=== PATIENT | male | born 1945 | race Asian ===

== ENCOUNTER 2016-05-28 05:51 | Emergency (ER) | payer OTHER ==
[2016-05-28] MEDS ORDERED: predniSONE 20 MG TABLET (UD) PO ONE (06:30)
[2016-05-28] MEDS ORDERED: KETOROLAC TROMETHAMINE 60 MG/2 ML VIAL IM ONE (06:30)
--- NOTE | 2016-05-28 06:30 | PDOC ---
[id number]/20/17 06:12 - History of Present Illness Initial Comments: 05/28/16 06:29 CHIEF COMPLAINT: lower back pin HISTORY OF PRESENT ILLNESS: 70 yo M with hx of IDDM, HTN, right shoulder impingment syndrome, presents to ED with left lower back pain x 2 days. Patient states pain began yesterday and radiates down his left leg. He denies any loss of sensation, numbness, or tingling to his legs. Patient denies any loss of bowel or bladder function. Patient denies any chest pain, shortness of breath. PAST MEDICAL HISTORY: as per HPI FAMILY HISTORY: Denies SOCIAL HISTORY: Denies tobacco, alcohol, illicit drug use. SURGICAL HISTORY: Denies ALLERGIES: No known drug allergies REVIEW OF SYSTEMS General/Constitutional: Denies fever or chills. Denies weakness, weight change. HEENT: Denies change in vision. Denies ear pain or discharge. Denies sore throat. Cardiovascular: Denies chest pain or shortness of breath. Respiratory: Denies cough, wheezing, or hemoptysis. Gastrointestinal: Denies nausea, vomiting, diarrhea or constipation. Denies rectal bleeding. Genitourinary: Denies dysuria, frequency, or change in urination. Musculoskeletal: Left lower back pain, radiating to left leg. Denies joint or muscle swelling or pain. Denies neck or back pain. Skin: Denies rash or easy bruising. PHYSICAL EXAM General Appearance: Well-appearing, appropriately dressed. No apparent distress. HEENT: EOMI, PERRLA, normal ENT inspection, normal voice, TMs normal, pharynx normal. No conjunctival pallor. No photophobia, scleral icterus. Respiratory/Chest: Lungs CTAB. Cardiovascular: RRR. S1, S2. Vascular Pulses: Dorsalis-Pedis (R): 2+, Dorsalis-Pedis (L): 2+ Gastrointestinal/Abdominal: Normal bowel sounds. Abdomen soft, non-distended. No tenderness or rebound tenderness. No organomegaly, pulsatile mass, guarding , hernia, hepatomegaly, splenomegaly. Musculoskeletal/Extremities: Reproducible tenderness to left lower back. Normal inspection. FROM of all extremities, normal capillary refill. Pelvis Stable. No CVA tenderness. No tenderness to extremities, pedal edema, swelling , erythema or deformity. Integumentary: Appropriate color, dry, warm. No cyanosis, erythema, jaundice or rash Neurologic: golf club manager II-XII intact. Fully oriented, alert. Appropriate mood/affect. Motor strength 5/5. No appreciable EOM palsy, facial droop or sensory deficit. 05/28/16 06:31 Past History - Past Medical History Allergies/Adverse Reactions: Allergies Allergy/AdvReac Type Severity Reaction Status Date / Time No Known Drug Allergies Allergy Unknown Verified 08/03/12 12:10 Home Medications: Ambulatory Orders Allopurinol 100 mg PO DAILY 03/30/11 Aspirin Coated [Ecotrin -] 81 mg PO DAILY 03/30/11 Glyburide/Metformin HCl [Glucovance 5-500 mg Tablet] 1 each PO BID 03/30/11 Sitagliptin Phos/Metformin HCl [Janumet 50-500 mg Tablet] 1 each PO BID Insulin Glargine,Hum.rec.anlog [Lantus Solostar PEN -] 30 units SQ HS 06/06/12 Levothyroxine [Synthroid -] 75 mcg PO DAILY@0700 #0 tablet 06/20/12 Simvastatin [Zocor -] 20 mg PO HS #1 tablet 06/20/12 Metoprolol Succinate [Toprol XL -] 50 mg PO DAILY 08/02/12 Multivitamin [Multivitamins] 1 each PO DAILY 08/02/12 Amlodipine Besylate/Benazepril [Lotrel 10-40 mg Capsule] 1 each PO DAILY Oxycodone HCl/Acetaminophen [Percocet 5-325 mg Tablet] 1 - 2 tab PO Q4H PRN #0 tablet 08/03/12 Oxycodone HCl/Acetaminophen [Percocet 5-325 mg Tablet] 1 - 2 tab PO Q6H PRN #12 tab MDD 4 05/28/16 Anemia: No Asthma: No Cancer: Yes (thyroid cancer) Cardiac Disorders: No CVA: Yes (TIA) COPD: No CHF: No Dementia: No Diabetes: Yes (NIDDM) GI Disorders: No Disorders: No HTN: Yes Hypercholesterolemia: Yes Liver Disease: No Seizures: No Thyroid Disease: Yes - Surgical History Abdominal Surgery: No Appendectomy: No Cardiac Surgery: No Cholecystectomy: No Lung Surgery: No Neurologic Surgery: No Orthopedic Surgery: No - Psycho/Social/Smoking Cessation Hx Smoking History: Former smoker Have you smoked in the past 12 months: No If you are a former smoker, when did you quit?: 2002 'Breaking Loose' booklet given: 06/16/12 Hx Alcohol Use: Yes (DAILY) Drug/Substance Use Hx: No Substance Use Type: Alcohol Hx Substance Use Treatment: No Medical Decision Making - Medical Decision Making 05/28/16 06:36 70 yo M with hx of HTN, IDDM, presents to ED with left lower back pain radiating to left leg x 2 days. -60 mg Toradol IM -40 mg prednisone -5 mg Valium Will reassess. Case discussed in detail with oncoming emergency provider including history, physical exam and ancillary studies. In brief, this patient is being seen in the ED for a chief complaint of: left lower back pain Plan for disposition as follows: discharge Oncoming ROCKY Rosario has assumed care for the patient and will complete the evaluation and treatment. *DC/Admit/Observation/Transfer Diagnosis at time of Disposition: Sciatica of left side - Discharge Dispostion Disposition: HOME Condition at time of disposition: Improved - Prescriptions Prescriptions: Oxycodone HCl/Acetaminophen [Percocet 5-325 mg Tablet] 1 - 2 tab PO Q6H PRN #12 tab MDD 4 PRN Reason: Pain - Referrals Referrals: Sarath Alas MD [Primary Care Provider] - Nacho Sun MD [Staff Physician] - - Patient Instructions Printed Discharge Instructions: DI for Sciatica Additional Instructions: Please take medication as needed for discomfort. please read instructions on sciatica. Please follow-up with referred orthopedist. - Post Discharge Activity Work/School Note: Back to Work
[2016-05-28] MEDS ORDERED: diazePAM 5 MG TABLET PO ONE (06:31)
[2016-05-28 06:40] VITALS: BP 164/67; PULSE 80; BMI 29.4
[2016-05-28] MEDS ORDERED: predniSONE 20 MG TABLET (UD) ONE ×2 (06:46→06:48)
[2016-05-28] MEDS ORDERED: KETOROLAC TROMETHAMINE 60 MG/2 ML VIAL ONE (06:46)
[2016-05-28] MEDS ORDERED: diazePAM 5 MG TABLET ONE (06:47)
--- NOTE | 2016-05-28 07:18 | PDOC ---
*Physical Exam - Vital Signs Last Vital Signs Temp Pulse Resp BP Pulse Ox 80 20 164/67 05/28/16 06:34 05/28/16 06:34 05/28/16 06:34 ED Treatment Course - Medications Given in the ED: ED Medications Discontinued Medications Generic Name Dose Route Start Last Admin Trade Name Rajendra PRN Reason Stop Dose Admin Diazepam 5 mg 05/28/16 06:31 05/28/16 06:55 Valium - PO 05/28/16 06:32 5 mg ONCE ONE Administration Ketorolac Tromethamine 60 mg 05/28/16 06:30 05/28/16 06:55 Toradol Injection - IM 05/28/16 06:31 60 mg ONCE ONE Administration Prednisone 40 mg 05/28/16 06:30 05/28/16 06:55 Deltasone - PO 05/28/16 06:31 40 mg ONCE ONE Administration Medical Decision Making - Medical Decision Making 05/28/16 07:18 Patient received in sign out with complaints of back pain and sciatica. Patient received medication and awaiting for improvement. We'll reassess shortly 05/28/16 08:18 Patient reevaluated and states mild relief with medication but soap tender over the left sciatica / left mid buttock. Patient describes the pain as sharp and intermittent worsened with standing. patient states has not had this pain before prior to 2 days ago. Patient also states has had no imaging of the affected area. Patient be ordered for hip and pelvis x-ray to rule out other etiology. 05/28/16 09:21 No evidence of hip dislocation or acute bony abnormalities. There is some disc space narrowing at L4-L5 and L5 and S1. Will discharge home with percocet and orthopedist referral. *DC/Admit/Observation/Transfer Diagnosis at time of Disposition: Sciatica of left side - Discharge Dispostion Disposition: HOME Condition at time of disposition: Improved - Referrals Referrals: Sarath Alas MD [Primary Care Provider] - Nacho Sun MD [Staff Physician] - - Patient Instructions Printed Discharge Instructions: DI for Sciatica Additional Instructions: Please take medication as needed for discomfort. please read instructions on sciatica. Please follow-up with referred orthopedist.
== END 2016-05-28 09:36 | disposition home or self-care (01) ==
LOC: JER 05:51
PROC: 3E0233Z Introduction of Anti-inflammatory into Muscle, Percutaneous Approach (ICD-10-PCS; principal; 2016-05-28)
DX: M54.32 Sciatica, left side (principal); E11.9 Type 2 diabetes mellitus without complications; I10 Essential (primary) hypertension; Z86.73 Personal history of transient ischemic attack (TIA), and cerebral infarction without residual deficits; Z85.850 Personal history of malignant neoplasm of thyroid; Z79.82 Long term (current) use of aspirin; Z87.891 Personal history of nicotine dependence
CPT/HCPCS: 73523-TC; 99281-25

== ENCOUNTER 2016-08-30 10:28 | Emergency (ER) | payer OTHER ==
[2016-08-30 10:32] VITALS: BP 159/80; PULSE 97; TEMP 98; BMI 29.4
[2016-08-30] MEDS ORDERED: IBUPROFEN 400 MG TABLET (FP) PO ONE ×2 (11:08→11:09)
--- NOTE | 2016-08-30 11:16 | PDOC ---
History of Present Illness - General Chief Complaint: Injury Stated Complaint: LFT LEG PAIN Time Seen by Provider: 08/30/16 10:39 History Source: Patient Exam Limitations: No Limitations - History of Present Illness Initial Comments: 08/30/16 11:31 Agent states stumbled while at [employer] going up the stairs falling backwards into the right landing on his elbow and twisting his left knee. 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 Is seeing Dr. Gonzalez/rubén for same and received an injection one month ago with some significant relief of pain however still has some weakness to this leg. Thinks is probable reason for stumbling. When he fell he felt some instability and popping to the medial aspect of his knee and since that time has been painful to walk. Denies neck back or abdomen injury. Occurred: reports: just prior to arrival, this morning Severity: reports: mild, moderate Pain Location: reports: lower extremity (left knee ) Method of Injury: Yes: fall Modifying Factors: improves with: None Loss of Consciousness: no loss of consciousness Associated Symptoms (Fall): denies symptoms Past History - Travel Traveled outside of the country in the last 30 days: No Close contact w/someone who was outside of country & ill: No - Past Medical History Allergies/Adverse Reactions: Allergies Allergy/AdvReac Type Severity Reaction Status Date / Time No Known Drug Allergies Allergy Unknown Verified 08/30/16 10:33 Home Medications: Ambulatory Orders Allopurinol 100 mg PO DAILY 03/30/11 Aspirin Coated [Ecotrin -] 81 mg PO DAILY 03/30/11 Glyburide/Metformin HCl [Glucovance 5-500 mg Tablet] 1 each PO BID 03/30/11 Sitagliptin Phos/Metformin HCl [Janumet 50-500 mg Tablet] 1 each PO BID Insulin Glargine,Hum.rec.anlog [Lantus Solostar PEN -] 30 units SQ HS 06/06/12 Levothyroxine [Synthroid -] 75 mcg PO DAILY@0700 #0 tablet 06/20/12 Simvastatin [Zocor -] 20 mg PO HS #1 tablet 06/20/12 Metoprolol Succinate [Toprol XL -] 50 mg PO DAILY 08/02/12 Multivitamin [Multivitamins] 1 each PO DAILY 08/02/12 Amlodipine Besylate/Benazepril [Lotrel 10-40 mg Capsule] 1 each PO DAILY Oxycodone HCl/Acetaminophen [Percocet 5-325 mg Tablet] 1 - 2 tab PO Q4H PRN #0 tablet 08/03/12 Oxycodone HCl/Acetaminophen [Percocet 5-325 mg Tablet] 1 - 2 tab PO Q6H PRN #12 tab MDD 4 05/28/16 Anemia: No Asthma: No Cancer: Yes (thyroid cancer) Cardiac Disorders: No CVA: Yes (TIA) COPD: No CHF: No Dementia: No Diabetes: Yes (NIDDM) GI Disorders: No Disorders: No HTN: Yes Hypercholesterolemia: Yes Liver Disease: No Seizures: No Thyroid Disease: Yes - Surgical History Abdominal Surgery: No Appendectomy: No Cardiac Surgery: No Cholecystectomy: No Lung Surgery: No Neurologic Surgery: No Orthopedic Surgery: No - Immunization History Immunization Up to Date: Yes - Psycho/Social/Smoking Cessation Hx Suicidal Ideation: No Smoking History: Former smoker Have you smoked in the past 12 months: No If you are a former smoker, when did you quit?: 2002 Information on smoking cessation initiated: No 'Breaking Loose' booklet given: 06/16/12 Hx Alcohol Use: Yes (DAILY) Drug/Substance Use Hx: No Substance Use Type: Alcohol Hx Substance Use Treatment: No Review of Systems - Review of Systems Able to Perform ROS?: Yes Is the patient limited [place]uran proficient: Yes Constitutional: Yes: Symptoms Reported, See HPI HEENTM: No: Symptoms Reported Respiratory: No: Symptoms reported, See HPI Cardiac (ROS): Yes: See HPI. No: Symptoms Reported, Chest Pain, Lightheadedness , Palpitations, Syncope Musculoskeletal: Yes: Symptoms Reported, See HPI, Joint Swelling (left knee ) Integumentary: Yes: Symptoms Reported, See HPI, Bruising Neurological: Yes: Symptoms reported, Numbness (to lewft leg- per history), Paresthesia All Other Systems: Reviewed and Negative *Physical Exam - Vital Signs Last Vital Signs Temp Pulse Resp BP Pulse Ox 98 F 97 H 18 159/80 98 08/30/16 10:29 08/30/16 10:29 08/30/16 10:29 08/30/16 10:29 08/30/16 10:29 - Physical Exam General Appearance: Yes: Nourished, Appropriately Dressed, Apparent Distress, Mild Distress HEENT: positive: TOY, Normal ENT Inspection, TMs Normal. negative: EOMI Neck: positive: Tender, Supple Respiratory/Chest: positive: Lungs Clear, Normal Breath Sounds Cardiovascular: positive: Regular Rate Gastrointestinal/Abdominal: positive: Soft Musculoskeletal: positive: Decreased Range of Motion (due to pain and swelling to medial and superior aspect of left knee ). negative: Normal Inspection, CVA Tenderness, Vertebral Tenderness Extremity: positive: Normal Capillary Refill. negative: Normal Range of Motion (range of motion with reproduce tenderness on varus maneuver to left knee. And swelling medial and superior. Neurovascular intact to foot,) Integumentary: positive: Normal Color, Dry, Bruising (medial aspect left knee), Other (abrasions and contusion to right elbow) Neurologic: positive: sexologist II-XII NML intact, Fully Oriented, Alert, Normal Mood/ Affect, Normal Response, Motor Strength 5/5 ED Treatment Course - RADIOLOGY Radiology Studies Ordered: Category Date Time Status KNEE 3 POS-LEFT [RAD] Stat Radiology 08/30/16 11:06 Ordered Progress Note - Progress Note Progress Note: Status post fall with multiple contusions and left knee sprain. X-ray reveals multiple areas of DJD and osteophytes. Knee immobilizer was placed and [address] Sun *DC/Admit/Observation/Transfer Diagnosis at time of Disposition: Knee sprain Qualifiers: Encounter type: initial encounter Involved ligament of knee: medial collateral ligament Laterality: left Qualified Code(s): S83.412A - Sprain of medial collateral ligament of left knee, initial encounter - Discharge Dispostion Disposition: HOME Condition at time of disposition: Stable Admit: No - Referrals Referrals: Sarath Alas MD [Primary Care Provider] - - Patient Instructions Printed Discharge Instructions: DI for Knee Sprain Additional Instructions: Rest, ice to area on and off for 15 minutes 4-6 times a day Avoid heavy lifting or exercise until pain and swelling is resolved or until further directed Keep area highly elevated to reduce swelling Use splints/Jose wrap as directed Followup with orthopedist in one to 2 days if not improving, if significantly improved may wait one week for followup with orthopedist May use ibuprofen 2-200 mg tablets every 6 hours as needed for pain - Post Discharge Activity Work/School Note: Back to Work
== END 2016-08-30 12:37 | disposition home or self-care (01) ==
LOC: JERFT 10:28
PROC: 2W3MXYZ Immobilization of Left Lower Extremity using Other Device (ICD-10-PCS; principal; 2016-08-30)
DX: S83.412A Sprain of medial collateral ligament of left knee, initial encounter (principal); S50.01XA Contusion of right elbow, initial encounter; W10.8XXA Fall (on) (from) other stairs and steps, initial encounter; Y93.89 Activity, other specified; Y92.22 Religious institution as the place of occurrence of the external cause; I10 Essential (primary) hypertension; E11.9 Type 2 diabetes mellitus without complications; Z79.4 Long term (current) use of insulin; Z79.84 Long term (current) use of oral hypoglycemic drugs; E03.9 Hypothyroidism, unspecified; E78.00 Pure hypercholesterolemia, unspecified; Z85.850 Personal history of malignant neoplasm of thyroid
CPT/HCPCS: 73562-TC-LT; 99281-25

== ENCOUNTER 2016-11-25 05:08 | Day surgery (SDC) | payer OTHER ==
[2016-11-19 13:40] VITALS: BMI 30.1
--- NOTE | 2016-11-25 09:59 | HP ---
Satellite [facility] - Chief Complaint Chief Complaint: left knee pain - Past Medical History Allergies/Adverse Reactions: Allergies Allergy/AdvReac Type Severity Reaction Status Date / Time No Known Drug Allergies Allergy Unknown Verified 11/25/16 09:12 - Current Medications Current Medications: Home Medications Medication Instructions Recorded Allopurinol 100 mg PO DAILY 03/30/11 Aspirin Coated [Ecotrin -] 81 mg PO DAILY 03/30/11 Glyburide/Metformin HCl 1 each PO BID 03/30/11 [Glucovance 5-500 mg Tablet] Levothyroxine [Synthroid -] 75 mcg PO DAILY@0700 #0 tablet 06/20/12 Simvastatin [Zocor -] 20 mg PO HS #1 tablet 06/20/12 Amlodipine Besylate/Benazepril 1 each PO DAILY 08/03/12 [Lotrel 10-40 mg Capsule] Hydralazine HCl 50 mg PO DAILY 11/19/16 Indomethacin 25 mg PO PRN 11/19/16 Insulin Solostar 60 units SCJ HS 11/19/16 Metoprolol Succinate [Toprol Xl] 50 mg PO DAILY 11/19/16 Multivitamins [Multivit ([facility] 1 tab PO DAILY 11/19/16 Formulary)] Sitagliptin Phosphate [Januvia] 100 mg PO DAILY 11/19/16 Oxycodone HCl/Acetaminophen 1 - 2 tab PO Q6H #30 tab MDD 8 11/25/16 [Percocet 5-325 mg Tablet -] Satellite Physical Exam - Physical Examination Vital Signs: Vital Signs Period Temp Pulse Resp BP Sys/Lizarraga Pulse Ox Last 24 Hr 98.0 F 75 18 144/73 97 General Appearance: Well Nourished, Well Developed, Alert & Oriented x3 ENT: Clear Lung: Normal air movement Heart: Regular rate & rhythm Extremities: Other Neurological: Intact, Alert, Oriented Satellite Impression/Plan - Impression/Plan Impression: left knee internal derangement Operative Procedure: left knee arthroscopy Date to be Performed: 11/25/16
[2016-11-25] MEDS ORDERED: MIDAZOLAM HCL 2 MG/2 ML SINGLE DOSE VIAL ONE (10:23)
[2016-11-25] MEDS ORDERED: PROPOFOL 20 ML ONE (10:23)
[2016-11-25] MEDS ORDERED: BUPIVACAINE HCL/PF 0.5% (5MG/ML) 10 ML VIAL ONE (10:24)
[2016-11-25] MEDS ORDERED: LIDOCAINE 1%/EPI 1:100000 (20 ML MULTI DOSE VIAL) ONE (10:24)
[2016-11-25] MEDS ORDERED: ceFAZolin SODIUM 1 GM VIAL IVPB ONE (10:58)
[2016-11-25] MEDS ORDERED: BUPIVACAINE HCL/PF 0.5% (5MG/ML) 10 ML VIAL IJ ONE (11:02)
[2016-11-25] MEDS ORDERED: LIDOCAINE 1%/EPI 1:100000 (20 ML MULTI DOSE VIAL) IJ ONE (11:02)
[2016-11-25] MEDS ORDERED: SODIUM CHLORIDE 0.9% P/F 10 ML VIAL IJ ONE (11:07)
[2016-11-25] MEDS ORDERED: oxyCODONE HCL 5 MG TABLET PO PRN (11:29)
[2016-11-25] MEDS ORDERED: ONDANSETRON 4 MG/2 ML VIAL IVPUSH PRN (11:29)
[2016-11-25] MEDS ORDERED: LACTATED RINGERS SOLUTION 1,000 ML IV SCH (11:30)
[2016-11-25 14:28] VITALS: TEMP 97.7
[2016-11-25 18:40] VITALS: BP 150/70; PULSE 70
--- NOTE | 2016-11-26 09:40 | OP ---
DATE OF OPERATION: 11/25/2016 PREOPERATIVE DIAGNOSIS: Internal derangement, left knee. POSTOPERATIVE DIAGNOSIS: Internal derangement, left knee. PROCEDURE: Arthroscopy, left knee; partial lateral meniscectomy; and chondroplasty of the trochlea. SURGICAL ATTENDING: Nacho Sun MD ANESTHESIA: General with LMA. CLOSURE: 4-0 nylon. COMPLICATIONS: None. CONDITION: To recovery room in stable condition. DESCRIPTION OF OPERATIVE PROCEDURE: Patient was taken to the operating room on November 25, 2016. Spinal anesthesia was administered per the anesthesiologist. IV Kefzol was administered prophylactically prior to the case. The left lower extremity was prepped and draped in the usual sterile fashion. Inferomedial and inferolateral portal sites were infiltrated with 1% Xylocaine with epinephrine. Both portals were then made with a 15 blade followed by blunt trocar. The scope and trocars were placed into the knee, up into the suprapatellar pouch. The knee was inflated with cocktail of 10 mL of 1% Xylocaine and 10 mL of 0.5% Marcaine and 20 mL of arthroscopic saline. After the anesthetic was left in the knee for a few minutes, the procedure was started. The suprapatellar pouch was visualized to be clean. The medial and lateral gutters were visualized to be clean. The undersurface of the patella was intact. Looking at the trochlea, there was found to be some punctate grade 3 to 4 changes. Any loose articular cartilage was debrided using the shaver. With valgus stress on the knee the medial compartment was entered. The medial meniscus was visualized to be completely gone from previous meniscectomy. Despite this, the medial femoral condyle and medial tibial plateau were basically intact. At 90 degrees, the ACL was visualized, found to be intact. In the [id number] position, the lateral compartment was entered. Lateral meniscus had a radial tear of its mid portion. This was debrided back to smooth, stable meniscal tissue using meniscal biter and arthroscopic shaver. The lateral femoral condyle was run and found to be intact, as was the lateral tibial plateau. The knee was irrigated with copious amounts of irrigation. The portals were closed using 4-0 nylon. Prior to closure, 20 mL of 0.5% Marcaine was infused through the trocar for postoperative analgesia. Sterile pressure dressing was placed over the knee. Patient awakened from anesthesia and transferred to recovery room in stable condition. No complications. Estimated blood loss negligible. Larry ALVARENGA/[id number]
== END 2016-11-25 18:25 | disposition home or self-care (01) ==
LOC: JASU-SURG 05:08
PROVIDERS: ATTEND Orthopaedic Surgery
PROC: 0SBD4ZZ Excision of Left Knee Joint, Percutaneous Endoscopic Approach (ICD-10-PCS; principal; 2016-11-25 09:30)
DX: S83.282A Other tear of lateral meniscus, current injury, left knee, initial encounter (principal); X58.XXXA Exposure to other specified factors, initial encounter; Y93.9 Activity, unspecified; Y92.9 Unspecified place or not applicable
CPT/HCPCS: 94760

== ENCOUNTER 2020-04-25 10:32 | Inpatient (IN) | payer OTHER ==
[2020-04-25 10:35] VITALS: BMI 33.0
[2020-04-25 12:27] LABS: BASO % 0.5 % (0-2.0); EOS % 0.2 % (0-4.5); HEMATOCRIT 29.5 % (35.4-49); LYMPH % 15.4 % (8-40); MCH 35.4 pg (25.7-33.7); MCHC 33.9 g/dl (32.0-35.9); MEAN CELL VOLUME 104.6 fl (80-96); MEAN PLT VOLUME 7.2 fl (7.5-11.1); MONO % 17.3 % (3.8-10.2); NEUT % 66.6 % (42.8-82.8); PLATELET COUNT 410 K/MM3 (134-434); RBC 2.82 M/mm3 (4.00-5.60); RDW 15.1 % (11.9-15.9); WHITE BLOOD COUNT 14.1 K/mm3 (4.0-10.0)
[2020-04-25 12:30] LABS: INR 1.22 (0.83-1.09); PROTHROMBIN TIME (PATIENT) 14.7 SEC (9.7-13.0)
[2020-04-25 12:33] LABS: ACTIVATED PTT 38.7 SECONDS (25.2-36.5)
[2020-04-25 12:53] LABS: POTASSIUM 5.7 mmol/L (3.5-5.1)
[2020-04-25 12:57] LABS: BLOOD UREA NITROGEN 40.7 mg/dL (7-18); CALCIUM 9.6 mg/dL (8.5-10.1)
[2020-04-25 12:58] LABS: ALBUMIN 2.7 g/dl (3.4-5.0); MAGNESIUM 2.3 mg/dL (1.8-2.4)
[2020-04-25 12:59] LABS: CREATININE 1.7 mg/dL (0.55-1.3)
[2020-04-25 13:01] LABS: BILIRUBIN,TOTAL 0.5 mg/dL (0.2-1); TOT PROT 6.7 g/dl (6.4-8.2)
[2020-04-25 13:05] LABS: N-TERMINAL BNP 343.3 pg/ml (5-125)
[2020-04-25] MEDS ORDERED: DEXTROSE 50%-WATER - 25 GM/50 ML VIAL IVPUSH ONE (13:10)
[2020-04-25] MEDS ORDERED: INSULIN REGULAR HUMAN 100 UNITS/ML *VIAL IVPUSH ONE ×2 (13:10→13:12)
[2020-04-25] MEDS ORDERED: SODIUM CHLORIDE 1,000 ML IV ONE (13:14)
[2020-04-25] MEDS ORDERED: DEXTROSE 50%-WATER - 25 GM/50 ML VIAL ONE (13:39)
[2020-04-25] MEDS ORDERED: INSULIN REGULAR HUMAN 100 UNITS/ML *VIAL ONE ×2 (13:41→15:13)
[2020-04-25] MEDS ORDERED: ACETAMINOPHEN 1000 MG/100 ML VIAL (NON FORMULARY) IVPB ONE (15:11)
[2020-04-25] MEDS ORDERED: ACETAMINOPHEN INJECTION 100 ML IVPB ONE (15:13)
[2020-04-25 16:05] LABS: URINE APPEARANCE TURBID; URINE BILIRUBIN 1+ (NEGATIVE); URINE COLOR RED; URINE GLUCOSE (UA) NEGATIVE (NEGATIVE); URINE KETONE NEGATIVE (NEGATIVE)
[2020-04-25 16:06] LABS: EPI CELLS 52.9 /uL (0-25.1); HYALINE CASTS 0.86 /uL (0-3.1); URINE BACTERIA 13.3 /uL (0-1359); URINE LEUK ESTERASE 2+ (NEGATIVE); URINE NITRITE POSITIVE (NEGATIVE); URINE PROTEIN 2+ (NEGATIVE); URINE RBC 40351.6 /uL (0-23.9); URINE UROBILINOGEN 0.2 mg/dL (0.2-1.0); URINE WBC 282.8 /uL (0-25.8)
[2020-04-25] MEDS ORDERED: CEFTRIAXONE 1,000 MG in DEXTROSE 5%-WATER - 50 ML IVPB ONE (16:59)
[2020-04-25] MEDS ORDERED: CEFTRIAXONE 1 GM/50 ML BAG ONE (17:37)
[2020-04-26 02:11] LABS: POTASSIUM 5.1 mmol/L (3.5-5.1)
[2020-04-26 02:12] LABS: CALCIUM 9.5 mg/dL (8.5-10.1)
[2020-04-26 02:17] LABS: CREATININE 1.5 mg/dL (0.55-1.3)
[2020-04-26] MEDS ORDERED: INSULIN (NOVOLOG) ASPART 100 UNITS/ML 10ML VIAL ONE ×2 (05:28→17:23)
[2020-04-26] MEDS: INSULIN SLIDING SCALE (NOVOLOG) 1 VIAL SQ SCH ×3 (06:07→16:30)
[2020-04-26] MEDS: LEVOTHYROXINE NA 75 MCG TABLET (FP) PO SCH (06:07)
[2020-04-26] MEDS ORDERED: CEFTRIAXONE 1,000 MG in DEXTROSE 5%-WATER - 50 ML IVPB SCH (08:00)
[2020-04-26 08:29] LABS: BASO % 0.3 % (0-2.0); EOS % 0.5 % (0-4.5); HEMATOCRIT 27.8 % (35.4-49); HEMOGLOBIN 9.4 GM/dL (11.7-16.9); LYMPH % 16.4 % (8-40); MCH 35.3 pg (25.7-33.7); MCHC 33.8 g/dl (32.0-35.9); MEAN CELL VOLUME 104.4 fl (80-96); MEAN PLT VOLUME 6.9 fl (7.5-11.1); MONO % 15.2 % (3.8-10.2); NEUT % 67.6 % (42.8-82.8); PLATELET COUNT 400 K/MM3 (134-434); RBC 2.67 M/mm3 (4.00-5.60); WHITE BLOOD COUNT 12.8 K/mm3 (4.0-10.0)
[2020-04-26 08:55] LABS: POTASSIUM 4.9 mmol/L (3.5-5.1)
[2020-04-26 08:58] LABS: MAGNESIUM 2.2 mg/dL (1.8-2.4)
[2020-04-26 08:59] LABS: CALCIUM 8.8 mg/dL (8.5-10.1)
[2020-04-26 09:00] LABS: ALBUMIN 2.4 g/dl (3.4-5.0); BLOOD UREA NITROGEN 33.4 mg/dL (7-18)
[2020-04-26 09:02] LABS: CREATININE 1.6 mg/dL (0.55-1.3)
[2020-04-26 09:03] LABS: PHOSPHOROUS 4.1 mg/dL (2.5-4.9)
[2020-04-26 09:04] LABS: BILIRUBIN,TOTAL 0.4 mg/dL (0.2-1); TOT PROT 6.3 g/dl (6.4-8.2)
[2020-04-26] MEDS ORDERED: DEXTROSE 5%-WATER - 50 ML IVPB ONE (09:43)
[2020-04-26] MEDS ORDERED: PT OWN MED DRAWER 7, Y5N ONE (09:43)
[2020-04-26] MEDS ORDERED: cefTRIAXone SODIUM 1 GM VIAL ONE (09:43)
[2020-04-26] MEDS: hydrALAZINE HCL 50 MG TABLET (FP) PO SCH ×2 (09:51→22:22)
[2020-04-26] MEDS: amLODIPine BESYLATE 10 MG TABLET (FP) PO SCH (09:51)
[2020-04-26] MEDS ORDERED: CEFTRIAXONE 1 GM in DEXTROSE 5%-WATER - 50 ML IVPB SCH (10:00)
[2020-04-26] MEDS ORDERED: LISINOPRIL 20 MG TABLET PO SCH (10:00)
[2020-04-26] MEDS: SODIUM CHLORIDE 1,000 ML IV SCH ×2 (11:09→22:26)
[2020-04-26] MEDS ORDERED: INSULIN (LEVEMIR) 100 UNITS/ML UNITS SQ SCH (22:00)
[2020-04-26] MEDS: INSULIN (LEVEMIR) 100 UNITS/ML UNITS SQ SCH (22:21)
[2020-04-26] MEDS: HEPARIN NA (PORCINE) 5,000 UNITS/ML 1ML VIAL SQ SCH (22:22)
[2020-04-27] MEDS: INSULIN SLIDING SCALE (NOVOLOG) 1 VIAL SQ SCH ×3 (06:35→16:47)
[2020-04-27] MEDS: HEPARIN NA (PORCINE) 5,000 UNITS/ML 1ML VIAL SQ SCH (06:36)
[2020-04-27] MEDS: LEVOTHYROXINE NA 75 MCG TABLET (FP) PO SCH (06:36)
[2020-04-27] MEDS: INSULIN (LEVEMIR) 100 UNITS/ML UNITS SQ SCH ×2 (06:36→21:34)
[2020-04-27 07:16] LABS: BASO % 0.4 % (0-2.0); EOS % 1.7 % (0-4.5); HEMATOCRIT 27.3 % (35.4-49); HEMOGLOBIN 9.3 GM/dL (11.7-16.9); LYMPH % 12.4 % (8-40); MCH 36.1 pg (25.7-33.7); MEAN CELL VOLUME 106.1 fl (80-96); MEAN PLT VOLUME 7.4 fl (7.5-11.1); MONO % 12.3 % (3.8-10.2); NEUT % 73.2 % (42.8-82.8); PLATELET COUNT 378 K/MM3 (134-434); RBC 2.57 M/mm3 (4.00-5.60); RDW 15.1 % (11.9-15.9); WHITE BLOOD COUNT 10.5 K/mm3 (4.0-10.0)
[2020-04-27 07:38] LABS: POTASSIUM 4.6 mmol/L (3.5-5.1)
[2020-04-27 07:44] LABS: CALCIUM 8.7 mg/dL (8.5-10.1)
[2020-04-27 07:45] LABS: ALBUMIN 2.3 g/dl (3.4-5.0); BLOOD UREA NITROGEN 30.5 mg/dL (7-18); MAGNESIUM 2.2 mg/dL (1.8-2.4)
[2020-04-27 07:48] LABS: CREATININE 1.3 mg/dL (0.55-1.3); PHOSPHOROUS 4.2 mg/dL (2.5-4.9)
[2020-04-27 07:49] LABS: TOT PROT 6.1 g/dl (6.4-8.2)
[2020-04-27 09:26] LABS: ANISOCYTOSIS 1+; MACROCYTOSIS 1+; PLATELET ESTIMATE NORMAL
[2020-04-27] MEDS ORDERED: PT OWN MED DRAWER 7, Y5N ONE (09:36)
[2020-04-27] MEDS ORDERED: AMPICILLIN SODIUM 2 GM VIAL ONE ×3 (09:36→20:10)
[2020-04-27] MEDS ORDERED: SODIUM CHLORIDE 100 ML IVPB ONE ×3 (09:36→20:10)
[2020-04-27] MEDS: AMPICILLIN - 2 GM in SODIUM CHLORIDE 100 ML IVPB SCH ×3 (09:39→20:41)
[2020-04-27] MEDS: hydrALAZINE HCL 50 MG TABLET (FP) PO SCH ×2 (09:45→21:33)
[2020-04-27] MEDS: amLODIPine BESYLATE 10 MG TABLET (FP) PO SCH (09:45)
[2020-04-27] MEDS: SODIUM CHLORIDE 1,000 ML IV SCH ×3 (09:47→12:47)
[2020-04-27] MEDS ORDERED: ACETAMINOPHEN 325 MG TABLET (FP) PO ONE (14:15)
[2020-04-27] MEDS ORDERED: ACETAMINOPHEN 325 MG TABLET (FP) ONE (14:16)
[2020-04-27] MEDS ORDERED: LIDOCAINE HCL 2% JELLY 10 ML CARTRIDGE UR ONE (17:04)
[2020-04-27] MEDS ORDERED: MORPHINE SULFATE 2 MG/ML VIAL IVPUSH ONE (18:44)
[2020-04-27] MEDS: ACETAMINOPHEN 1000 MG/100 ML VIAL (NON FORMULARY) IVPB PRN (20:13)
[2020-04-28] MEDS ORDERED: AMPICILLIN SODIUM 2 GM VIAL ONE ×4 (01:04→21:05)
[2020-04-28] MEDS ORDERED: SODIUM CHLORIDE 100 ML IVPB ONE ×4 (01:04→21:05)
[2020-04-28] MEDS: ACETAMINOPHEN 1000 MG/100 ML VIAL (NON FORMULARY) IVPB PRN ×3 (02:16→16:20)
[2020-04-28] MEDS: SODIUM CHLORIDE 1,000 ML IV SCH (03:02)
[2020-04-28] MEDS: AMPICILLIN - 2 GM in SODIUM CHLORIDE 100 ML IVPB SCH ×4 (03:03→21:16)
[2020-04-28] MEDS: INSULIN (LEVEMIR) 100 UNITS/ML UNITS SQ SCH (06:04)
[2020-04-28] MEDS: INSULIN SLIDING SCALE (NOVOLOG) 1 VIAL SQ SCH ×3 (06:04→17:24)
[2020-04-28] MEDS: LEVOTHYROXINE NA 75 MCG TABLET (FP) PO SCH (06:12)
[2020-04-28] MEDS ORDERED: PT OWN MED DRAWER 7, Y5N ONE ×2 (08:20→09:43)
[2020-04-28 08:23] LABS: BASO % 0.2 % (0-2.0); EOS % 2.7 % (0-4.5); HEMATOCRIT 26.4 % (35.4-49); LYMPH % 17.6 % (8-40); MCH 35.9 pg (25.7-33.7); MEAN CELL VOLUME 105.6 fl (80-96); MEAN PLT VOLUME 7.3 fl (7.5-11.1); MONO % 9.8 % (3.8-10.2); NEUT % 69.7 % (42.8-82.8); PLATELET COUNT 409 K/MM3 (134-434); WHITE BLOOD COUNT 9.1 K/mm3 (4.0-10.0)
[2020-04-28 08:42] LABS: POTASSIUM 4.6 mmol/L (3.5-5.1)
[2020-04-28 08:46] LABS: ALBUMIN 2.3 g/dl (3.4-5.0); BLOOD UREA NITROGEN 26.4 mg/dL (7-18); CALCIUM 8.8 mg/dL (8.5-10.1); MAGNESIUM 2.1 mg/dL (1.8-2.4)
[2020-04-28 08:49] LABS: CREATININE 1.2 mg/dL (0.55-1.3)
[2020-04-28 08:50] LABS: PHOSPHOROUS 4.4 mg/dL (2.5-4.9)
[2020-04-28 08:51] LABS: BILIRUBIN,TOTAL 0.3 mg/dL (0.2-1); TOT PROT 6.2 g/dl (6.4-8.2)
[2020-04-28] MEDS: amLODIPine BESYLATE 10 MG TABLET (FP) PO SCH (09:48)
[2020-04-28] MEDS: hydrALAZINE HCL 50 MG TABLET (FP) PO SCH ×2 (09:48→21:16)
[2020-04-28] MEDS ORDERED: INSULIN (NOVOLOG) ASPART 100 UNITS/ML 10ML VIAL ONE (17:19)
[2020-04-28] MEDS ORDERED: INSULIN (LEVEMIR) 100 UNITS/ML UNITS SQ SCH (22:00)
[2020-04-29] MEDS ORDERED: ACETAMINOPHEN 1000 MG/100 ML VIAL (NON FORMULARY) IVPB ONE (00:33)
[2020-04-29] MEDS ORDERED: AMPICILLIN SODIUM 2 GM VIAL ONE ×3 (03:06→21:49)
[2020-04-29] MEDS ORDERED: SODIUM CHLORIDE 100 ML IVPB ONE ×4 (03:06→21:49)
[2020-04-29] MEDS: AMPICILLIN - 2 GM in SODIUM CHLORIDE 100 ML IVPB SCH ×4 (03:12→21:56)
[2020-04-29] MEDS: LEVOTHYROXINE NA 75 MCG TABLET (FP) PO SCH (06:43)
[2020-04-29] MEDS: INSULIN SLIDING SCALE (NOVOLOG) 1 VIAL SQ SCH ×3 (06:43→17:09)
[2020-04-29] MEDS ORDERED: INSULIN (LEVEMIR) 100 UNITS/ML UNITS SQ SCH ×3 (07:00→10:00)
[2020-04-29] MEDS ORDERED: ACETAMINOPHEN 1000 MG/100 ML VIAL (NON FORMULARY) IVPB PRN (08:27)
[2020-04-29] MEDS ORDERED: PT OWN MED DRAWER 7, Y5N ONE (08:28)
[2020-04-29 08:41] LABS: POTASSIUM 4.6 mmol/L (3.5-5.1)
[2020-04-29 08:43] LABS: CALCIUM 9.7 mg/dL (8.5-10.1)
[2020-04-29 08:47] LABS: CREATININE 1.2 mg/dL (0.55-1.3)
[2020-04-29] MEDS: hydrALAZINE HCL 50 MG TABLET (FP) PO SCH ×2 (10:32→21:56)
[2020-04-29] MEDS: amLODIPine BESYLATE 10 MG TABLET (FP) PO SCH (10:32)
[2020-04-29 11:14] LABS: BASO % 0.7 % (0-2.0); EOS % 2.5 % (0-4.5); HEMATOCRIT 29.9 % (35.4-49); HEMOGLOBIN 10.1 GM/dL (11.7-16.9); LYMPH % 19.4 % (8-40); MCH 35.8 pg (25.7-33.7); MCHC 33.9 g/dl (32.0-35.9); MEAN CELL VOLUME 105.7 fl (80-96); MEAN PLT VOLUME 7.2 fl (7.5-11.1); MONO % 8.9 % (3.8-10.2); NEUT % 68.5 % (42.8-82.8); PLATELET COUNT 483 K/MM3 (134-434); RBC 2.83 M/mm3 (4.00-5.60); RDW 14.9 % (11.9-15.9); WHITE BLOOD COUNT 10.4 K/mm3 (4.0-10.0)
[2020-04-29] MEDS ORDERED: ceFAZolin SODIUM 1 GM VIAL IVPB ONE (16:27)
[2020-04-29] MEDS ORDERED: EPHEDRINE SULFATE/0.9% NACL/PF 50 MG/10 ML SYRINGE NR ONE (16:41)
[2020-04-29] MEDS: AMPICILLIN SODIUM 2 GM VIAL ONE ×2 (17:15→17:25)
[2020-04-29] MEDS ORDERED: ONDANSETRON 4 MG/2 ML VIAL IVPUSH PRN ×2 (17:18→19:29)
[2020-04-29] MEDS ORDERED: oxyCODONE HCL 5 MG TABLET PO PRN ×2 (17:18→19:29)
[2020-04-29] MEDS ORDERED: LACTATED RINGERS SOLUTION 1,000 ML IV SCH (17:30)
[2020-04-29] MEDS ORDERED: ACETAMINOPHEN INJECTION 100 ML IVPB ONE (17:36)
[2020-04-29] MEDS: HYDROmorphone HCl 2 MG/ML VIAL IVPB SCH ×2 (18:20→21:05)
[2020-04-29] MEDS ORDERED: HYDROmorphone HCl 2 MG/ML VIAL ONE (18:25)
[2020-04-29] MEDS: LACTATED RINGERS SOLUTION 1,000 ML IV SCH ×2 (21:57→23:55)
[2020-04-29] MEDS: INSULIN (LEVEMIR) 100 UNITS/ML UNITS SQ SCH (23:51)
[2020-04-30] MEDS: ACETAMINOPHEN 1000 MG/100 ML VIAL (NON FORMULARY) IVPB PRN ×2 (00:54→07:27)
[2020-04-30] MEDS ORDERED: AMPICILLIN SODIUM 2 GM VIAL ONE ×4 (01:40→20:39)
[2020-04-30] MEDS ORDERED: SODIUM CHLORIDE 100 ML IVPB ONE ×4 (01:41→20:39)
[2020-04-30] MEDS: AMPICILLIN - 2 GM in SODIUM CHLORIDE 100 ML IVPB SCH ×4 (02:22→21:19)
[2020-04-30] MEDS: LEVOTHYROXINE NA 75 MCG TABLET (FP) PO SCH (06:00)
[2020-04-30] MEDS: INSULIN (LEVEMIR) 100 UNITS/ML UNITS SQ SCH ×2 (06:01→21:39)
[2020-04-30] MEDS: INSULIN SLIDING SCALE (NOVOLOG) 1 VIAL SQ SCH ×3 (06:01→17:19)
[2020-04-30 07:55] LABS: BASO % 0.6 % (0-2.0); EOS % 0.7 % (0-4.5); HEMATOCRIT 28.6 % (35.4-49); HEMOGLOBIN 9.6 GM/dL (11.7-16.9); MCH 35.5 pg (25.7-33.7); MCHC 33.6 g/dl (32.0-35.9); MEAN CELL VOLUME 105.7 fl (80-96); MEAN PLT VOLUME 7.1 fl (7.5-11.1); MONO % 5.9 % (3.8-10.2); NEUT % 74.8 % (42.8-82.8); PLATELET COUNT 462 K/MM3 (134-434); RBC 2.71 M/mm3 (4.00-5.60); RDW 15.2 % (11.9-15.9); WHITE BLOOD COUNT 11.2 K/mm3 (4.0-10.0)
[2020-04-30 08:56] LABS: POTASSIUM 4.9 mmol/L (3.5-5.1)
[2020-04-30 08:59] LABS: ALBUMIN 2.6 g/dl (3.4-5.0); CALCIUM 9.5 mg/dL (8.5-10.1); MAGNESIUM 1.8 mg/dL (1.8-2.4)
[2020-04-30 09:01] LABS: BLOOD UREA NITROGEN 23.5 mg/dL (7-18)
[2020-04-30 09:03] LABS: CREATININE 1.1 mg/dL (0.55-1.3)
[2020-04-30 09:04] LABS: BILIRUBIN,TOTAL 0.6 mg/dL (0.2-1); TOT PROT 6.8 g/dl (6.4-8.2)
[2020-04-30] MEDS: LACTATED RINGERS SOLUTION 1,000 ML IV SCH ×2 (10:00→20:39)
[2020-04-30] MEDS: amLODIPine BESYLATE 10 MG TABLET (FP) PO SCH (11:08)
[2020-04-30] MEDS: hydrALAZINE HCL 50 MG TABLET (FP) PO SCH ×2 (11:08→22:16)
[2020-04-30 11:09] LABS: ANISOCYTOSIS 0; MACROCYTOSIS 1+; PLATELET ESTIMATE NORMAL
[2020-04-30] MEDS ORDERED: INSULIN (NOVOLOG) ASPART 100 UNITS/ML 10ML VIAL ONE (12:25)
[2020-04-30] MEDS ORDERED: MAGNESIUM OXIDE 400 MG TABLET (FP) PO ONE (14:55)
[2020-04-30] MEDS: ACETAMINOPHEN 325 MG TABLET (FP) PO PRN ×2 (16:20→22:16)
[2020-04-30] MEDS ORDERED: POLYETHYLENE GLYCOL 3350 119 GM BTL PO ONE (21:06)
[2020-05-01] MEDS ORDERED: SODIUM CHLORIDE 100 ML IVPB ONE ×5 (02:04→23:27)
[2020-05-01] MEDS ORDERED: AMPICILLIN SODIUM 2 GM VIAL ONE ×5 (02:04→23:27)
[2020-05-01] MEDS: AMPICILLIN - 2 GM in SODIUM CHLORIDE 100 ML IVPB SCH ×4 (02:06→20:17)
[2020-05-01] MEDS: INSULIN SLIDING SCALE (NOVOLOG) 1 VIAL SQ SCH ×3 (06:53→16:51)
[2020-05-01] MEDS: INSULIN (LEVEMIR) 100 UNITS/ML UNITS SQ SCH ×2 (06:55→21:07)
[2020-05-01] MEDS: LEVOTHYROXINE NA 75 MCG TABLET (FP) PO SCH (06:55)
[2020-05-01] MEDS ORDERED: INSULIN (NOVOLOG) ASPART 100 UNITS/ML 10ML VIAL ONE ×2 (08:00→16:45)
[2020-05-01 08:06] LABS: BASO % 0.2 % (0-2.0); EOS % 1.7 % (0-4.5); HEMATOCRIT 28.3 % (35.4-49); HEMOGLOBIN 9.9 GM/dL (11.7-16.9); LYMPH % 14.9 % (8-40); MCH 37.5 pg (25.7-33.7); MCHC 35.1 g/dl (32.0-35.9); MEAN CELL VOLUME 107.1 fl (80-96); MEAN PLT VOLUME 7.1 fl (7.5-11.1); MONO % 7.8 % (3.8-10.2); NEUT % 75.4 % (42.8-82.8); PLATELET COUNT 433 K/MM3 (134-434); RBC 2.65 M/mm3 (4.00-5.60); RDW 15.3 % (11.9-15.9); WHITE BLOOD COUNT 10.4 K/mm3 (4.0-10.0)
[2020-05-01 08:17] LABS: POTASSIUM 4.7 mmol/L (3.5-5.1)
[2020-05-01 08:26] LABS: ALBUMIN 2.7 g/dl (3.4-5.0); BLOOD UREA NITROGEN 21.2 mg/dL (7-18); CALCIUM 9.8 mg/dL (8.5-10.1); MAGNESIUM 1.8 mg/dL (1.8-2.4)
[2020-05-01 08:30] LABS: BILIRUBIN,TOTAL 0.3 mg/dL (0.2-1)
[2020-05-01 08:31] LABS: TOT PROT 6.6 g/dl (6.4-8.2)
[2020-05-01] MEDS: amLODIPine BESYLATE 10 MG TABLET (FP) PO SCH (09:42)
[2020-05-01] MEDS: hydrALAZINE HCL 50 MG TABLET (FP) PO SCH ×2 (09:42→21:03)
[2020-05-01] MEDS: ACETAMINOPHEN 325 MG TABLET (FP) PO PRN ×2 (11:34→16:47)
[2020-05-01] MEDS ORDERED: POLYETHYLENE GLYCOL 3350 119 GM BTL PO ONE (14:35)
[2020-05-01] MEDS: LACTATED RINGERS SOLUTION 1,000 ML IV SCH ×3 (14:44→23:38)
[2020-05-02] MEDS: ACETAMINOPHEN 325 MG TABLET (FP) PO PRN ×2 (00:44→10:09)
[2020-05-02] MEDS: AMPICILLIN - 2 GM in SODIUM CHLORIDE 100 ML IVPB SCH ×4 (02:10→21:41)
[2020-05-02] MEDS: INSULIN SLIDING SCALE (NOVOLOG) 1 VIAL SQ SCH ×3 (06:10→16:44)
[2020-05-02] MEDS: LEVOTHYROXINE NA 75 MCG TABLET (FP) PO SCH (06:11)
[2020-05-02] MEDS: INSULIN (LEVEMIR) 100 UNITS/ML UNITS SQ SCH ×2 (06:11→21:42)
[2020-05-02 08:12] LABS: BASO % 0.4 % (0-2.0); EOS % 1.7 % (0-4.5); HEMATOCRIT 28.7 % (35.4-49); HEMOGLOBIN 9.8 GM/dL (11.7-16.9); LYMPH % 15.9 % (8-40); MCH 35.4 pg (25.7-33.7); MCHC 34.3 g/dl (32.0-35.9); MEAN CELL VOLUME 103.1 fl (80-96); MEAN PLT VOLUME 6.9 fl (7.5-11.1); MONO % 6.9 % (3.8-10.2); NEUT % 75.1 % (42.8-82.8); PLATELET COUNT 428 K/MM3 (134-434); RBC 2.78 M/mm3 (4.00-5.60); RDW 15.4 % (11.9-15.9); WHITE BLOOD COUNT 12.9 K/mm3 (4.0-10.0)
[2020-05-02 08:24] LABS: INR 1.1 (0.83-1.09); PROTHROMBIN TIME (PATIENT) 13.5 SEC (9.7-13.0)
[2020-05-02 08:32] LABS: POTASSIUM 4.2 mmol/L (3.5-5.1)
[2020-05-02 08:39] LABS: CALCIUM 9.3 mg/dL (8.5-10.1)
[2020-05-02 08:40] LABS: ALBUMIN 2.6 g/dl (3.4-5.0); BLOOD UREA NITROGEN 20.3 mg/dL (7-18); MAGNESIUM 1.6 mg/dL (1.8-2.4)
[2020-05-02 08:43] LABS: CREATININE 1.1 mg/dL (0.55-1.3); PHOSPHOROUS 3.7 mg/dL (2.5-4.9)
[2020-05-02 08:44] LABS: BILIRUBIN,TOTAL 0.4 mg/dL (0.2-1); TOT PROT 6.4 g/dl (6.4-8.2)
[2020-05-02] MEDS ORDERED: AMPICILLIN SODIUM 2 GM VIAL ONE ×3 (08:50→21:07)
[2020-05-02] MEDS ORDERED: SODIUM CHLORIDE 100 ML IVPB ONE ×3 (08:51→21:07)
[2020-05-02] MEDS: LACTATED RINGERS SOLUTION 1,000 ML IV SCH ×2 (08:52→16:31)
[2020-05-02] MEDS ORDERED: PT OWN MED DRAWER 7, Y5N ONE (09:18)
[2020-05-02] MEDS: hydrALAZINE HCL 50 MG TABLET (FP) PO SCH ×2 (09:40→21:42)
[2020-05-02] MEDS: amLODIPine BESYLATE 10 MG TABLET (FP) PO SCH (09:40)
[2020-05-02] MEDS ORDERED: MAGNESIUM OXIDE 400 MG TABLET (FP) PO ONE (11:46)
[2020-05-02] MEDS ORDERED: DOCUSATE SODIUM 100 MG CAPSULE (FP) PO ONE (15:29)
[2020-05-03] MEDS ORDERED: AMPICILLIN SODIUM 2 GM VIAL ONE ×3 (01:47→14:19)
[2020-05-03] MEDS ORDERED: SODIUM CHLORIDE 100 ML IVPB ONE ×3 (01:48→14:19)
[2020-05-03] MEDS: AMPICILLIN - 2 GM in SODIUM CHLORIDE 100 ML IVPB SCH ×3 (02:20→14:21)
[2020-05-03] MEDS: INSULIN (LEVEMIR) 100 UNITS/ML UNITS SQ SCH ×2 (06:42→21:55)
[2020-05-03] MEDS: INSULIN SLIDING SCALE (NOVOLOG) 1 VIAL SQ SCH ×3 (06:42→16:53)
[2020-05-03] MEDS: LEVOTHYROXINE NA 75 MCG TABLET (FP) PO SCH (06:42)
[2020-05-03 07:50] LABS: BASO % 0.1 % (0-2.0); EOS % 0.8 % (0-4.5); HEMATOCRIT 27.8 % (35.4-49); HEMOGLOBIN 9.3 GM/dL (11.7-16.9); LYMPH % 14.7 % (8-40); MCH 34.8 pg (25.7-33.7); MCHC 33.6 g/dl (32.0-35.9); MEAN CELL VOLUME 103.7 fl (80-96); MEAN PLT VOLUME 7.3 fl (7.5-11.1); MONO % 7.8 % (3.8-10.2); NEUT % 76.6 % (42.8-82.8); PLATELET COUNT 391 K/MM3 (134-434); RBC 2.68 M/mm3 (4.00-5.60); RDW 15.7 % (11.9-15.9); WHITE BLOOD COUNT 14.5 K/mm3 (4.0-10.0)
[2020-05-03 08:03] LABS: POTASSIUM 4.2 mmol/L (3.5-5.1)
[2020-05-03 08:07] LABS: ALBUMIN 2.6 g/dl (3.4-5.0); BLOOD UREA NITROGEN 20.4 mg/dL (7-18); CALCIUM 9.4 mg/dL (8.5-10.1)
[2020-05-03 08:10] LABS: PHOSPHOROUS 3.4 mg/dL (2.5-4.9)
[2020-05-03 08:11] LABS: CREATININE 1.2 mg/dL (0.55-1.3)
[2020-05-03 08:12] LABS: BILIRUBIN,TOTAL 0.4 mg/dL (0.2-1); TOT PROT 6.6 g/dl (6.4-8.2)
[2020-05-03] MEDS: ACETAMINOPHEN 325 MG TABLET (FP) PO PRN ×2 (10:19→21:20)
[2020-05-03] MEDS: amLODIPine BESYLATE 10 MG TABLET (FP) PO SCH (10:22)
[2020-05-03] MEDS: hydrALAZINE HCL 50 MG TABLET (FP) PO SCH ×2 (10:22→21:22)
[2020-05-03] MEDS ORDERED: DOCUSATE SODIUM 100 MG CAPSULE (FP) PO SCH (12:15)
[2020-05-03] MEDS ORDERED: POLYETHYLENE GLYCOL 3350 119 GM BTL PO ONE (13:25)
[2020-05-03] MEDS ORDERED: MINERAL OIL ENEMA 133 ML ENEMA PR ONE (15:37)
[2020-05-03] MEDS: LACTATED RINGERS SOLUTION 1,000 ML IV SCH (16:41)
[2020-05-03] MEDS ORDERED: INSULIN (NOVOLOG) ASPART 100 UNITS/ML 10ML VIAL ONE (16:52)
[2020-05-03] MEDS: DOCUSATE SODIUM 100 MG CAPSULE (FP) PO SCH (21:22)
[2020-05-04] MEDS: INSULIN (LEVEMIR) 100 UNITS/ML UNITS SQ SCH ×2 (06:08→21:27)
[2020-05-04] MEDS: LEVOTHYROXINE NA 75 MCG TABLET (FP) PO SCH (06:08)
[2020-05-04] MEDS: INSULIN SLIDING SCALE (NOVOLOG) 1 VIAL SQ SCH ×3 (06:08→17:50)
[2020-05-04] MEDS ORDERED: VANCOMYCIN 1 GRAM (PRE-DOCKED) 1 GM/200 ML BAG IVPB ONE (07:26)
[2020-05-04] MEDS: ACETAMINOPHEN 325 MG TABLET (FP) PO PRN ×2 (09:21→14:58)
[2020-05-04] MEDS: hydrALAZINE HCL 50 MG TABLET (FP) PO SCH ×2 (09:21→21:23)
[2020-05-04] MEDS: amLODIPine BESYLATE 10 MG TABLET (FP) PO SCH (09:21)
[2020-05-04] MEDS ORDERED: PHENAZOPYRIDINE HCL 100 MG TABLET (FP) PO ONE (10:59)
[2020-05-04] MEDS ORDERED: AMPICILLIN NA/SULBACTAM NA 1.5 GM VIAL ONE ×2 (14:54→21:13)
[2020-05-04] MEDS ORDERED: SODIUM CHLORIDE 100 ML IVPB ONE ×2 (14:54→21:14)
[2020-05-04] MEDS: AMPICILLIN NA/SULBACTAM NA 1.5 GM in SODIUM CHLORIDE 100 ML IVPB SCH ×2 (14:56→21:19)
[2020-05-04] MEDS: LACTATED RINGERS SOLUTION 1,000 ML IV SCH (17:51)
[2020-05-04] MEDS ORDERED: INSULIN (LEVEMIR) 100 UNITS/ML UNITS SQ ONE (18:30)
[2020-05-04] MEDS: DOCUSATE SODIUM 100 MG CAPSULE (FP) PO SCH (21:23)
[2020-05-05] MEDS: ACETAMINOPHEN 325 MG TABLET (FP) PO PRN ×2 (01:53→11:07)
[2020-05-05] MEDS ORDERED: SODIUM CHLORIDE 100 ML IVPB ONE ×4 (02:14→20:37)
[2020-05-05] MEDS ORDERED: AMPICILLIN NA/SULBACTAM NA 1.5 GM VIAL ONE ×4 (02:14→20:37)
[2020-05-05] MEDS: AMPICILLIN NA/SULBACTAM NA 1.5 GM in SODIUM CHLORIDE 100 ML IVPB SCH ×4 (02:16→21:04)
[2020-05-05] MEDS: INSULIN (LEVEMIR) 100 UNITS/ML UNITS SQ SCH ×2 (06:40→21:05)
[2020-05-05] MEDS: INSULIN SLIDING SCALE (NOVOLOG) 1 VIAL SQ SCH ×3 (06:40→17:28)
[2020-05-05] MEDS: LEVOTHYROXINE NA 75 MCG TABLET (FP) PO SCH (06:42)
[2020-05-05] MEDS: amLODIPine BESYLATE 10 MG TABLET (FP) PO SCH (09:30)
[2020-05-05] MEDS: hydrALAZINE HCL 50 MG TABLET (FP) PO SCH ×2 (09:30→21:04)
[2020-05-05] MEDS ORDERED: INSULIN (NOVOLOG) ASPART 100 UNITS/ML 10ML VIAL ONE (11:33)
[2020-05-05 12:12] LABS: BASO % 0.2 % (0-2.0); EOS % 1.1 % (0-4.5); HEMATOCRIT 26.2 % (35.4-49); HEMOGLOBIN 8.8 GM/dL (11.7-16.9); LYMPH % 15.2 % (8-40); MCH 35.2 pg (25.7-33.7); MCHC 33.7 g/dl (32.0-35.9); MEAN CELL VOLUME 104.4 fl (80-96); MEAN PLT VOLUME 7.7 fl (7.5-11.1); MONO % 9.3 % (3.8-10.2); NEUT % 74.2 % (42.8-82.8); PLATELET COUNT 359 K/MM3 (134-434); RBC 2.51 M/mm3 (4.00-5.60); RDW 15.3 % (11.9-15.9); WHITE BLOOD COUNT 12.9 K/mm3 (4.0-10.0)
[2020-05-05 12:24] LABS: POTASSIUM 4.1 mmol/L (3.5-5.1)
[2020-05-05 12:27] LABS: ALBUMIN 2.4 g/dl (3.4-5.0); BLOOD UREA NITROGEN 27.2 mg/dL (7-18); CALCIUM 9.3 mg/dL (8.5-10.1)
[2020-05-05 12:30] LABS: CREATININE 1.2 mg/dL (0.55-1.3); PHOSPHOROUS 3.3 mg/dL (2.5-4.9)
[2020-05-05 12:32] LABS: BILIRUBIN,TOTAL 0.4 mg/dL (0.2-1); TOT PROT 6.4 g/dl (6.4-8.2)
[2020-05-05] MEDS: LACTATED RINGERS SOLUTION 1,000 ML IV SCH (17:26)
[2020-05-05 18:17] LABS: METHYLMALONIC ACID- 468 nmol/L (0-378)
[2020-05-05] MEDS: DOCUSATE SODIUM 100 MG CAPSULE (FP) PO SCH (21:05)
[2020-05-06] MEDS ORDERED: PT OWN MED DRAWER 7, Y5N ONE (01:45)
[2020-05-06] MEDS ORDERED: AMPICILLIN NA/SULBACTAM NA 1.5 GM VIAL ONE ×4 (01:46→20:17)
[2020-05-06] MEDS ORDERED: SODIUM CHLORIDE 100 ML IVPB ONE ×4 (01:46→20:17)
[2020-05-06] MEDS: AMPICILLIN NA/SULBACTAM NA 1.5 GM in SODIUM CHLORIDE 100 ML IVPB SCH ×4 (02:55→20:28)
[2020-05-06] MEDS: LEVOTHYROXINE NA 75 MCG TABLET (FP) PO SCH (06:04)
[2020-05-06] MEDS: INSULIN (LEVEMIR) 100 UNITS/ML UNITS SQ SCH ×2 (06:04→21:47)
[2020-05-06] MEDS: INSULIN SLIDING SCALE (NOVOLOG) 1 VIAL SQ SCH ×3 (06:29→16:48)
[2020-05-06 09:08] LABS: BASO % 0.4 % (0-2.0); EOS % 2.1 % (0-4.5); HEMOGLOBIN 8.6 GM/dL (11.7-16.9); LYMPH % 20.3 % (8-40); MCH 36.2 pg (25.7-33.7); MCHC 34.5 g/dl (32.0-35.9); MEAN CELL VOLUME 104.8 fl (80-96); MEAN PLT VOLUME 7.8 fl (7.5-11.1); NEUT % 68.2 % (42.8-82.8); PLATELET COUNT 346 K/MM3 (134-434); RBC 2.39 M/mm3 (4.00-5.60); RDW 15.2 % (11.9-15.9); WHITE BLOOD COUNT 10.2 K/mm3 (4.0-10.0)
[2020-05-06 09:30] LABS: ALBUMIN 2.5 g/dl (3.4-5.0); BLOOD UREA NITROGEN 21.5 mg/dL (7-18); CALCIUM 9.1 mg/dL (8.5-10.1)
[2020-05-06 09:31] LABS: MAGNESIUM 1.8 mg/dL (1.8-2.4)
[2020-05-06 09:33] LABS: CREATININE 1.1 mg/dL (0.55-1.3); PHOSPHOROUS 3.1 mg/dL (2.5-4.9)
[2020-05-06 09:35] LABS: BILIRUBIN,TOTAL 0.4 mg/dL (0.2-1); TOT PROT 6.4 g/dl (6.4-8.2)
[2020-05-06] MEDS: hydrALAZINE HCL 50 MG TABLET (FP) PO SCH ×2 (09:56→21:41)
[2020-05-06] MEDS: amLODIPine BESYLATE 10 MG TABLET (FP) PO SCH (09:56)
[2020-05-06] MEDS: ACETAMINOPHEN 325 MG TABLET (FP) PO PRN ×2 (09:57→18:32)
[2020-05-06] MEDS ORDERED: INSULIN (NOVOLOG) ASPART 100 UNITS/ML 10ML VIAL ONE (11:59)
[2020-05-06] MEDS: DOCUSATE SODIUM 100 MG CAPSULE (FP) PO SCH ×2 (21:41→21:48)
[2020-05-06] MEDS ORDERED: LACTATED RINGERS SOLUTION 1,000 ML/1,000 ML INFUS.BAG IV SCH (23:59)
[2020-05-07] MEDS: ACETAMINOPHEN 325 MG TABLET (FP) PO PRN ×3 (00:55→20:53)
[2020-05-07] MEDS ORDERED: AMPICILLIN NA/SULBACTAM NA 1.5 GM VIAL ONE ×4 (01:32→20:49)
[2020-05-07] MEDS ORDERED: SODIUM CHLORIDE 100 ML IVPB ONE ×4 (01:32→20:49)
[2020-05-07] MEDS: AMPICILLIN NA/SULBACTAM NA 1.5 GM in SODIUM CHLORIDE 100 ML IVPB SCH ×4 (02:02→21:10)
[2020-05-07] MEDS: INSULIN (LEVEMIR) 100 UNITS/ML UNITS SQ SCH ×2 (06:04→21:18)
[2020-05-07] MEDS: LEVOTHYROXINE NA 75 MCG TABLET (FP) PO SCH (06:04)
[2020-05-07] MEDS: INSULIN SLIDING SCALE (NOVOLOG) 1 VIAL SQ SCH ×3 (06:04→17:04)
[2020-05-07 08:43] LABS: HEMOGLOBIN 8.8 GM/dL (11.7-16.9)
[2020-05-07 08:45] LABS: POTASSIUM 4.1 mmol/L (3.5-5.1)
[2020-05-07 08:47] LABS: CALCIUM 9.4 mg/dL (8.5-10.1)
[2020-05-07 08:48] LABS: ALBUMIN 2.6 g/dl (3.4-5.0); BLOOD UREA NITROGEN 18.4 mg/dL (7-18); MAGNESIUM 1.7 mg/dL (1.8-2.4)
[2020-05-07 08:50] LABS: BASO % 0.3 % (0-2.0); EOS % 1.5 % (0-4.5); HEMATOCRIT 25.3 % (35.4-49); LYMPH % 14.1 % (8-40); MCHC 34.7 g/dl (32.0-35.9); MEAN CELL VOLUME 103.7 fl (80-96); MEAN PLT VOLUME 7.5 fl (7.5-11.1); MONO % 8.2 % (3.8-10.2); NEUT % 75.9 % (42.8-82.8); PLATELET COUNT 355 K/MM3 (134-434); RBC 2.44 M/mm3 (4.00-5.60); RDW 15.8 % (11.9-15.9); WHITE BLOOD COUNT 12.2 K/mm3 (4.0-10.0)
[2020-05-07 08:51] LABS: PHOSPHOROUS 3.4 mg/dL (2.5-4.9)
[2020-05-07 08:52] LABS: BILIRUBIN,TOTAL 0.4 mg/dL (0.2-1); TOT PROT 6.5 g/dl (6.4-8.2)
[2020-05-07] MEDS: amLODIPine BESYLATE 10 MG TABLET (FP) PO SCH (09:27)
[2020-05-07] MEDS: hydrALAZINE HCL 50 MG TABLET (FP) PO SCH ×2 (09:27→21:17)
[2020-05-07] MEDS ORDERED: MAGNESIUM SULF 50% (8.12 MEQ/2 ML-1 GM VIAL) IVPB ONE (10:58)
[2020-05-07] MEDS ORDERED: ONDANSETRON 4 MG/2 ML VIAL IVPUSH PRN ×2 (15:56→17:35)
[2020-05-07] MEDS ORDERED: PROPOFOL 20 ML ONE (15:59)
[2020-05-07] MEDS ORDERED: DEXAMETHASONE SOD PHOSPHATE 4 MG/1 ML VIAL ONE (16:00)
[2020-05-07] MEDS ORDERED: LIDOCAINE HCL/PF 2% SDV 5ML VIAL ONE (16:00)
[2020-05-07] MEDS ORDERED: LABETALOL HCL 5 MG/1 ML (100MG/20 ML VIAL) IVPUSH ONE ×2 (18:05→18:06)
[2020-05-07] MEDS ORDERED: DOCUSATE SODIUM 100 MG CAPSULE (FP) PO SCH (22:00)
[2020-05-08] MEDS ORDERED: AMPICILLIN NA/SULBACTAM NA 1.5 GM VIAL ONE ×3 (02:08→14:37)
[2020-05-08] MEDS ORDERED: SODIUM CHLORIDE 100 ML IVPB ONE ×3 (02:09→14:37)
[2020-05-08] MEDS: AMPICILLIN NA/SULBACTAM NA 1.5 GM in SODIUM CHLORIDE 100 ML IVPB SCH ×3 (02:18→14:40)
[2020-05-08] MEDS ORDERED: traMADol HCL 50 MG TABLET PO ONE (06:09)
[2020-05-08] MEDS ORDERED: LIDOCAINE HCL 2% JELLY (30 ML/TUBE) TP ONE (06:45)
[2020-05-08] MEDS: INSULIN (LEVEMIR) 100 UNITS/ML UNITS SQ SCH ×2 (06:58→21:19)
[2020-05-08] MEDS: INSULIN SLIDING SCALE (NOVOLOG) 1 VIAL SQ SCH ×3 (06:58→17:25)
[2020-05-08] MEDS ORDERED: LEVOTHYROXINE NA 75 MCG TABLET (FP) PO SCH (07:00)
[2020-05-08 07:29] LABS: BASO % 0.3 % (0-2.0); EOS % 0.4 % (0-4.5); HEMATOCRIT 27.2 % (35.4-49); LYMPH % 16.9 % (8-40); MCH 33.8 pg (25.7-33.7); MCHC 33.2 g/dl (32.0-35.9); MEAN CELL VOLUME 101.8 fl (80-96); MEAN PLT VOLUME 7.7 fl (7.5-11.1); MONO % 6.2 % (3.8-10.2); NEUT % 76.2 % (42.8-82.8); PLATELET COUNT 389 K/MM3 (134-434); RBC 2.67 M/mm3 (4.00-5.60); RDW 15.4 % (11.9-15.9); WHITE BLOOD COUNT 14.3 K/mm3 (4.0-10.0)
[2020-05-08 08:02] LABS: POTASSIUM 4.4 mmol/L (3.5-5.1)
[2020-05-08] MEDS ORDERED: traMADol HCL 50 MG TABLET PO PRN (08:39)
[2020-05-08 08:48] LABS: CALCIUM 9.5 mg/dL (8.5-10.1)
[2020-05-08 08:49] LABS: ALBUMIN 2.6 g/dl (3.4-5.0); BLOOD UREA NITROGEN 20.5 mg/dL (7-18); MAGNESIUM 2.2 mg/dL (1.8-2.4)
[2020-05-08 08:51] LABS: BILIRUBIN,TOTAL 0.4 mg/dL (0.2-1)
[2020-05-08 08:52] LABS: CREATININE 1.2 mg/dL (0.55-1.3); TOT PROT 6.9 g/dl (6.4-8.2)
[2020-05-08 08:53] LABS: PHOSPHOROUS 3.8 mg/dL (2.5-4.9)
[2020-05-08] MEDS: hydrALAZINE HCL 50 MG TABLET (FP) PO SCH ×2 (09:22→21:13)
[2020-05-08] MEDS ORDERED: amLODIPine BESYLATE 10 MG TABLET (FP) PO SCH (10:00)
[2020-05-08] MEDS ORDERED: CYANOCOBALAMIN 1,000 MCG TABLET (FP) PO SCH ×2 (10:00)
[2020-05-08 14:58] VITALS: BP 155/79; PULSE 96; TEMP 98.2
[2020-05-08] MEDS: ACETAMINOPHEN 325 MG TABLET (FP) PO PRN (21:13)
== END 2020-05-08 21:59 | disposition short-term general hospital (02) | DRG 660 ==
LOC: JER 10:32 → JERBED 19:10 → J8W 22:22
PROVIDERS: ADMIT Internal Medicine; ATTEND Internal Medicine
PROC: 0T5C8ZZ Destruction of Bladder Neck, Via Natural or Artificial Opening Endoscopic (ICD-10-PCS; principal; 2020-04-25)
PROC: 0W3R8ZZ Control Bleeding in Genitourinary Tract, Via Natural or Artificial Opening Endoscopic (ICD-10-PCS; 2020-04-25)
PROC: 0T9B8ZZ Drainage of Bladder, Via Natural or Artificial Opening Endoscopic (ICD-10-PCS; 2020-04-25)
PROC: BT0BZZZ Plain Radiography of Bladder and Urethra (ICD-10-PCS; 2020-04-25)
PROC: 0T968ZZ Drainage of Right Ureter, Via Natural or Artificial Opening Endoscopic (ICD-10-PCS; 2020-05-07)
PROC: 0TH983Z Insertion of Infusion Device into Ureter, Via Natural or Artificial Opening Endoscopic (ICD-10-PCS; 2020-05-07)
PROC: BT0BZZZ Plain Radiography of Bladder and Urethra (ICD-10-PCS; 2020-05-07)
DX: N13.6 Pyonephrosis (principal); K86.2 Cyst of pancreas; E87.1 Hypo-osmolality and hyponatremia; D62 Acute posthemorrhagic anemia; N28.89 Other specified disorders of kidney and ureter; I10 Essential (primary) hypertension; N17.9 Acute kidney failure, unspecified; E78.5 Hyperlipidemia, unspecified; E11.9 Type 2 diabetes mellitus without complications; G47.33 Obstructive sleep apnea (adult) (pediatric); N40.0 Benign prostatic hyperplasia without lower urinary tract symptoms; E66.9 Obesity, unspecified; Z68.33 Body mass index [BMI] 33.0-33.9, adult; I44.0 Atrioventricular block, first degree; Z85.850 Personal history of malignant neoplasm of thyroid; D64.9 Anemia, unspecified; E04.1 Nontoxic single thyroid nodule; D35.00 Benign neoplasm of unspecified adrenal gland; K76.89 Other specified diseases of liver; N28.1 Cyst of kidney, acquired; E87.5 Hyperkalemia; I71.2 Thoracic aortic aneurysm, without rupture; I11.9 Hypertensive heart disease without heart failure; R31.0 Gross hematuria; K59.09 Other constipation; N32.0 Bladder-neck obstruction; B95.2 Enterococcus as the cause of diseases classified elsewhere; I35.0 Nonrheumatic aortic (valve) stenosis; R50.9 Fever, unspecified
CPT/HCPCS: 36415; 71045-TC-FY; 71250-TC; 74177-TC; 76000-TC-FY; 76775-TC; 76856-TC; 80048; 80053; 81003; 82272; 82570; 82607; 82728; 82746; 82962; 83540; 83550; 83605; 83690; 83735; 83880; 83921; 83930; 83935; 84100; 84300; 84443; 84466; 85025; 85045; 85610; 85730; 86850; 86900; 86901; 87040; 87086; 87186; 93005; 93010; 93306-TC; 94660; 94760; 99285-25; C9803; J0131; J1644; U0003; U0005